=== PATIENT | male | born 1965 | race Caucasian/White ===

== ENCOUNTER 2017-02-09 04:11 | Emergency (ER) | payer OTHER ==
--- NOTE | 2017-02-09 05:23 | ED ORDER SUMMARY ---
..... Patient: LORI HORTON OrderSheet [facility] VisitID: [id number] [place] [address] 51y, M Registration Date/Time: 02/09/2017 ORDER SHEET Weight: 127.0 kg (stated) Allergies: NKDA GENERAL ORDERS: MEDICATION ORDERS: Prednisone PO 60 mg (NOW) (05:07 02/09/2017 Bethany RIVAS) (Ack 5:09 DDavis R.N.) (5:16 DDavis R.N.) Pepcid PO 20 mg (NOW) (05:02/09/2017 Bethany RIVAS) (Ack 5:09 DDavis R.N.) (5:16 DDavis R.N.) Benadryl PO 25 mg (NOW) (05:07 02/09/2017 Bethany RIVAS) (Ack 5:09 DDavis R.N.) (5:16 DDavis R.N.) IV FLUIDS: ORDER SHEET NOTES: [Electronically signed by James Hunt R.N. (05:33 02/09/2017)] [Electronically signed by Mary Travis MD (14:59 02/21/2017)] [Electronically locked/signed by James Hunt R.N. (05:33 02/09/2017)]
--- NOTE | 2017-02-09 05:23 | ED ORDER SUMMARY ---
..... Patient: LORI HORTON OrderSheet [facility] VisitID: [id number] [place] [address] 51y, M Registration Date/Time: 02/09/2017 ORDER SHEET Weight: 127.0 kg (stated) Allergies: NKDA GENERAL ORDERS: MEDICATION ORDERS: Prednisone PO 60 mg (NOW) (05:07 02/09/2017 Bethany RIVAS) (Ack 5:09 DDavis R.N.) (5:16 DDavis R.N.) Pepcid PO 20 mg (NOW) (05:02/09/2017 Bethany RIVAS) (Ack 5:09 DDavis R.N.) (5:16 DDavis R.N.) Benadryl PO 25 mg (NOW) (05:07 02/09/2017 Bethany RIVAS) (Ack 5:09 DDavis R.N.) (5:16 DDavis R.N.) IV FLUIDS: ORDER SHEET NOTES: [Electronically signed by James Hunt R.N. (05:33 02/09/2017)] [Electronically signed by Mary Travis MD (14:59 02/21/2017)] [Electronically locked/signed by James Hunt R.N. (05:33 02/09/2017)]
--- NOTE | 2017-02-09 05:23 | ED NURSING NOTES ---
Clinical Report - Nurses [facility] [address] [place] [address] 02/09/2017 4:11 [id number] TRI[facility] Triage time 04:18. Acuity: LEVEL 4. Chief Complaint: SKIN RASH and . generalized. Alert. EVANGELINA COMA SCORE: [place] Coma Scale: 15- eyes open spontaneously (4); best verbal response- oriented x 4 (5); best motor response- obeys commands (6). --04:23 James Hunt R.N. 04:17 02/09/17. BP: 111/86 (large adult cuff) taken on the left arm, while sitting. HR: 95. RR: 24 (regular and unlabored). O2 saturation: 97% on room air. Temp: 98.2 F (oral). Pain level now: 12/18. --04:23 James Hunt R.N. Weight: 127 kg stated. Height/Length: 74 inches Per Patient. BMI: 36. --04:18 James Hunt R.N. Medications Atorvastatin Calcium Oral (Tablet 80 mg). Gabapentin Oral (Tablet 600 mg), Q 8hrs. Hydrocodone-Acetaminophen Oral. Insulin Lantus 80 units. MetFORMIN HCl Oral (Tablet 1000 mg). Omeprazole Oral. --04:20 James Hunt R.N. Lisinopril Oral. --04:21 James Hunt R.N. Allergies NKDA. --04:20 James Hunt R.N. History Arrived by private vehicle. Historian: patient. Unaccompanied. Reported as generalized in location. Onset. (6 days ago). It is described as itchy and burning. He has recently taken medication (clindamycin). SOCIAL HX: Heavy tobacco smoker (cigarette)- 1 pack per day. No alcohol use or drug use. NUTRITIONAL RISK ASSESSMENT: The nutritional risk assessment revealed no deficiencies. FUNCTIONAL ASSESSMENT: Functional assessment: no impairments noted. LEARNING NEEDS ASSESSMENT: The learning needs assessment revealed no barriers. --04:23 James Hunt R.N. ADDITIONAL SURGERIES: Gangrene surgery. Ulcer. --04:22 James Hunt R.N. Interventions ID band on patient. To treatment room. --04:23 James Hunt R.N. PHYSICAL ASSESSMENT Ambulatory to room. GENERAL / NEURO / PSYCH: Alert. Oriented X 4. Does not appear in pain or distress or anxious. HEENT: Mucous membranes are pink. RESPIRATORY: No respiratory distress. Respirations not labored. Breath sounds within normal limits. No cough. ( airway patent). CVS: No abnormal heart sounds. Capillary refill less than 2 seconds. GI / : Abdomen nontender. SKIN: Skin is warm and dry. Generalized skin rash present. --04:24 James Hunt R.N. NURSING PROGRESS NOTES Pulse oximeter placed on patient. Patient gowned. Head of bed elevated. Two patient identifiers checked. Call light placed in reach. Side rails up x 1. Bed placed in lowest position. Brakes of bed on. Patient ready for evaluation- chart flagged and ED physician notified. Patient waiting for evaluation. --04:25 James Hunt R.N. ( [place] given to patient). --04:50 James Hunt R.N. 05:11 02/09/2017 Prednisone PO Tablets 60 mg given. Allergies verified and confirmed 5 rights. --05:16 James Hunt R.N. 05:13 02/09/2017 Pepcid (Famotidine) PO Tablets 20 mg given. Allergies verified and confirmed 5 rights. --05:16 James Hunt R.N. 05:15 02/09/2017 Benadryl (DiphenhydrAMINE HCl) PO Capsules 25 mg given. Allergies verified, confirmed 5 rights and sedative warning given to the patient. --05:16 James Hunt R.N. DISPOSITION / DISCHARGE Departure time: 05:30. Condition at departure: stable. No learning barriers present. Discharge instructions provided and reviewed with the patient. Reviewed warnings (sedation warning). Reviewed medication(s) side effects, precautions, dosing and course information. Prescription(s) given to the patient. Treatments reviewed. Reviewed referrals for followup. Patient verbalized understanding. Written instructions provided in Filipino. The patient was discharged by the physician. He was discharged home and accompanied by piano and organ refinisher. He left the Emergency Department ambulatory and via private vehicle. Dish Carrier driving. ( I have warned the patient about the sedation effects of the benadryl he received, patient states that he can find someone to give him a ride home). --05:32 James Hunt R.N. 05:30 02/09/17. BP: 125/61. HR: 84. RR: 20. O2 saturation: 94%. Additional comments: no change in pain since last assessment. --05:32 James Hunt R.N. Locked/Released at 02/09/2017 5:33 by James Hunt R.N.
--- NOTE | 2017-02-09 05:23 | ED NURSING NOTES ---
Clinical Report - Nurses [facility] [address] [place] [address] 02/09/2017 4:11 [id number] TRIAGE Triage time 04:18. Acuity: LEVEL 4. Chief Complaint: SKIN RASH and . generalized. Alert. EVANGELINA COMA SCORE: [place] Coma Scale: 15- eyes open spontaneously (4); best verbal response- oriented x 4 (5); best motor response- obeys commands (6). --04:23 James Hunt R.N. 04:17 02/09/17. BP: 111/86 (large adult cuff) taken on the left arm, while sitting. HR: 95. RR: 24 (regular and unlabored). O2 saturation: 97% on room air. Temp: 98.2 F (oral). Pain level now: 12/18. --04:23 James Hunt R.N. Weight: 127 kg stated. Height/Length: 74 inches Per Patient. BMI: 36. --04:18 James Hunt R.N. Medications Atorvastatin Calcium Oral (Tablet 80 mg). Gabapentin Oral (Tablet 600 mg), Q 8hrs. Hydrocodone-Acetaminophen Oral. Insulin Lantus 80 units. MetFORMIN HCl Oral (Tablet 1000 mg). Omeprazole Oral. --04:20 James Hunt R.N. Lisinopril Oral. --04:21 James Hunt R.N. Allergies NKDA. --04:20 James Hunt R.N. History Arrived by private vehicle. Historian: patient. Unaccompanied. Reported as generalized in location. Onset. (6 days ago). It is described as itchy and burning. He has recently taken medication (clindamycin). SOCIAL HX: Heavy tobacco smoker (cigarette)- 1 pack per day. No alcohol use or drug use. NUTRITIONAL RISK ASSESSMENT: The nutritional risk assessment revealed no deficiencies. FUNCTIONAL ASSESSMENT: Functional assessment: no impairments noted. LEARNING NEEDS ASSESSMENT: The learning needs assessment revealed no barriers. --04:23 James Hunt R.N. ADDITIONAL SURGERIES: Gangrene surgery. Ulcer. --04:22 James Hunt R.N. Interventions ID band on patient. To treatment room. --04:23 James Hunt R.N. PHYSICAL ASSESSMENT Ambulatory to room. GENERAL / NEURO / PSYCH: Alert. Oriented X 4. Does not appear in pain or distress or anxious. HEENT: Mucous membranes are pink. RESPIRATORY: No respiratory distress. Respirations not labored. Breath sounds within normal limits. No cough. ( airway patent). CVS: No abnormal heart sounds. Capillary refill less than 2 seconds. GI / : Abdomen nontender. SKIN: Skin is warm and dry. Generalized skin rash present. --04:24 James Hunt R.N. NURSING PROGRESS NOTES Pulse oximeter placed on patient. Patient gowned. Head of bed elevated. Two patient identifiers checked. Call light placed in reach. Side rails up x 1. Bed placed in lowest position. Brakes of bed on. Patient ready for evaluation- chart flagged and ED physician notified. Patient waiting for evaluation. --04:25 James Hunt R.N. ( [place] given to patient). --04:50 James Hunt R.N. 05:11 02/09/2017 Prednisone PO Tablets 60 mg given. Allergies verified and confirmed 5 rights. --05:16 James Hunt R.N. 05:13 02/09/2017 Pepcid (Famotidine) PO Tablets 20 mg given. Allergies verified and confirmed 5 rights. --05:16 James Hunt R.N. 05:15 02/09/2017 Benadryl (DiphenhydrAMINE HCl) PO Capsules 25 mg given. Allergies verified, confirmed 5 rights and sedative warning given to the patient. --05:16 James Hunt R.N. DISPOSITION / DISCHARGE Departure time: 05:30. Condition at departure: stable. No learning barriers present. Discharge instructions provided and reviewed with the patient. Reviewed warnings (sedation warning). Reviewed medication(s) side effects, precautions, dosing and course information. Prescription(s) given to the patient. Treatments reviewed. Reviewed referrals for followup. Patient verbalized understanding. Written instructions provided in [place]inean. The patient was discharged by the physician. He was discharged home and accompanied by web ui developer. He left the Emergency Department ambulatory and via private vehicle. Foot Caster driving. ( I have warned the patient about the sedation effects of the benadryl he received, patient states that he can find someone to give him a ride home). --05:32 James Hunt R.N. 05:30 02/09/17. BP: 125/61. HR: 84. RR: 20. O2 saturation: 94%. Additional comments: no change in pain since last assessment. --05:32 James Hunt R.N. Locked/Released at 02/09/2017 5:33 by James Hunt R.N.
--- NOTE | 2017-02-09 05:23 | ED CLINICAL REPORT ---
Clinical Report - Physicians/Mid Levels [facility] [address] [place] [address] 02/09/2017 4:11 Patient: LORI HORTON Time Seen: 04:37. Arrived- By private vehicle. Historian- patient. HISTORY OF PRESENT ILLNESS Chief Complaint: ALLERGIC REACTION, SKIN RASH, ITCHING and "HIVES". This started several days ago and is still present. The patient has had a skin rash and itching but not had swelling or trouble swallowing. No difficulty breathing, dizziness or fainting episodes. A possible cause has been identified (Pt was on clindamycin, and finally stopped the medication 2 days ago. Pt is concerned that he still has the rash. He is not taking anything for an allergic reaction, currently.). He has recently taken medication. The patient was not assessed by EMS prior to arrival. No treatment prior to arrival. Similar symptoms previously: None. Recent medical care: The patient was seen recently by a health care provider. REVIEW OF SYSTEMS No eye problems, sore throat, cough, sputum production or fever. No chills, joint pain, enlarged lymph nodes, headache or weakness. No numbness, chest pain, palpitations, abdominal pain or vomiting. No black stools, urinary frequency, pain with urination, diarrhea or bloody stools. All systems otherwise negative, except as recorded above. PAST HISTORY Problems: Qkvqsvi-Pjapz-Nuaxe disease. Sepsis. Immunizations. Neuropathy. Diabetes Mellitus. Additional Surgeries: Gangrene surgery. Ulcer. Medications: Lisinopril Oral. Atorvastatin Calcium Oral (Tablet 80 mg). Gabapentin Oral (Tablet 600 mg), Q 8hrs. Hydrocodone-Acetaminophen Oral. Insulin Lantus 80 units. MetFORMIN HCl Oral (Tablet 1000 mg). Omeprazole Oral. Allergies: NKDA. SOCIAL HISTORY Smoker- current status unknown. No alcohol use or drug use. ADDITIONAL NOTES The nursing notes have been reviewed. PHYSICAL EXAM Vital Signs: 02/09/2017 04:17 BP: 111/86. HR: 95. RR: 24. O2 saturation: 97%. Temp: 98.2 F. Pain level now: 410. Have been reviewed. Appearance: Alert. Oriented X3. No acute distress. Head and Neck: Normal external inspection. Eyes: Pupils equal, round and reactive to light. ENT: Nose normal. Voice normal. Neck: Neck supple. CVS: Normal heart rate and rhythm. Heart sounds normal. Respiratory: No respiratory distress. Breath sounds normal. Abdomen: Nontender. No organomegaly. Skin: Skin warm and dry. Extremities: Normal external inspection. Extremities nontender. Skin: Mild generalized urticaria. Mild skin rash. Neuro: Oriented X 3. No motor deficit. No sensory deficit. LABS, X-RAYS, AND EKG Pulse Oximetry: 02/09/2017 04:17 O2 saturation: 97%. (FIO2 - room air). Interpretation: normal. PROGRESS AND PROCEDURES Course of Care: PT was treated symptomatically with Benadryl, prednisone, and Pepcid. He has already removed the most likely offending agent. Pt had no signs of current or impending anaphylaxis. I have explained to the pt that given the systemic nature of the reaction, due to an ingested agent, it may take some days for the allergic reaction to clear. Pt may use the above medications for symptomatic relief, until the sx have resolved. Patient counseled in person regarding the patient's stable condition, diagnosis and need for follow-up. Concerns were addressed. Old medical records reviewed. Disposition: Discharged. Condition: stable. CLINICAL IMPRESSION Generalized allergic reaction with skin rash and hives secondary to drug. No angioedema. INSTRUCTIONS (Please take the prednisone, Benadryl and Pepcid, as directed, until your symptoms resolve or the medicine is used up.). Warnings: GENERAL WARNINGS: Return or contact your physician immediately if your condition worsens or changes unexpectedly, if not improving as expected, or if other problems arise. Your Current Medications: CONTINUE TAKING THE FOLLOWING MEDICATIONS: Atorvastatin Calcium Oral : Tablet 80 mg. Gabapentin Oral : Tablet 600 mg, Q 8hrs. Hydrocodone-Acetaminophen Oral. Insulin Lantus* : 80 units. Lisinopril Oral. MetFORMIN HCl Oral : Tablet 1000 mg. Omeprazole Oral. Prescription Medications: Prednisone 20 mg: take 3 orally every day for 4 days. Dispense sufficient quantity. No refills. Pepcid 20 mg: take 1 orally at bedtime for 5 days. Dispense five (5). No refills. Substitution is permissible. Follow-up: Follow up with your doctor in five days if not better. Understanding of the discharge instructions verbalized by patient. (Electronically signed by Mary Travis MD 02/21/2017 14:59)
--- NOTE | 2017-02-21 15:00 | ED DISCHARGE INSTRUCTIONS ---
Patient: LORI HORTON General Instructions [facility] VisitID: [id number] [place] [address] 51y, M Registration Date/Time: 02/09/2017 Generalized allergic reaction with skin rash and hives secondary to drug. No angioedema. INSTRUCTIONS (Please take the prednisone, Benadryl and Pepcid, as directed, until your symptoms resolve or the medicine is used up.). Warnings: GENERAL WARNINGS: Return or contact your physician immediately if your condition worsens or changes unexpectedly, if not improving as expected, or if other problems arise. Your Current Medications: CONTINUE TAKING THE FOLLOWING MEDICATIONS: Atorvastatin Calcium Oral : Tablet 80 mg. Gabapentin Oral : Tablet 600 mg, Q 8hrs. Hydrocodone-Acetaminophen Oral. Insulin Lantus* : 80 units. Lisinopril Oral. MetFORMIN HCl Oral : Tablet 1000 mg. Omeprazole Oral. Prescription Medications: Prednisone 20 mg: take 3 orally every day for 4 days. Dispense sufficient quantity. No refills. Pepcid 20 mg: take 1 orally at bedtime for 5 days. Dispense five (5). No refills. Substitution is permissible. Follow-up: Follow up with your doctor in five days if not better. Understanding of the discharge instructions verbalized by patient. ADDITIONAL INFORMATION Allergic Reaction,Generalized [Other] You are having an allergic reaction. This may cause an itchy rash, dizziness, fainting, trouble breathing or swallowing, and swelling of the face or other parts of the body. This can be caused by exposure to something in your surroundings that you have become sensitive to. This could be due to medicine or food. This could also be due to something you put on your skin or in your hair or something in the air. Often it is not possible to find out exactly what has caused your reaction. The goal of today's treatment is to relieve symptoms. The rash will usually fade over several days, but can sometimes last up to two weeks. Home Care: 1) If you know what you are allergic to, avoid it because future reactions could be worse than this one. 2) Avoid tight clothing and anything that heats up your skin (hot showers/baths, direct sunlight) since heat will make itching worse. 3) An ice pack will relieve local areas of intense itching and redness. Lanacaine cream or Solarcaine spray (or other product containing "benzocaine", available without a prescription) will reduce the itching. 4) Oral Benadryl (diphenhydramine) is an antihistamine available at drug and grocery stores. Unless a prescription antihistamine was given, Benadryl may be used to reduce itching if large areas of the skin are involved. Use lower doses during the daytime and higher doses at bedtime since the drug may make you sleepy. [NOTE: Do not use Benadryl if you have glaucoma or if you are a man with trouble urinating due to an enlarged prostate.] Claritin (loratidine) is an antihistamine that causes less drowsiness and is a good alternative for daytime use. Follow Up Follow Up with your doctor or this facility in two days if your symptoms do not continue to improve. If you had a severe reaction today, or if you have had several mild-moderate allergic reactions in the past, ask your doctor about allergy testing to find out what you are allergic to. If your reaction included dizziness, fainting or trouble breathing or swallowing, ask your doctor about carrying an Allergy Kit (injectable epinephrine) for home use. Get Prompt Medical Attention if any of the following occur: -- Trouble breathing or swallowing -- New or worse swelling in the face, eyelids, lips, mouth, tongue or throat -- Dizziness, weakness or fainting Prednisone Oral tablet What is this medicine? PREDNISONE (PRED ni sone) is a corticosteroid. It is commonly used to treat inflammation of the skin, joints, lungs, and other organs. Common conditions treated include asthma, allergies, and arthritis. It is also used for other conditions, such as blood disorders and diseases of the adrenal glands. How should I use this medicine? Take this medicine by mouth with a glass of water. Follow the directions on the prescription label. Take this medicine with food. If you are taking this medicine once a day, take it in the morning. Do not take more medicine than you are told to take. Do not suddenly stop taking your medicine because you may develop a severe reaction. Your doctor will tell you how much medicine to take. If your doctor wants you to stop the medicine, the dose may be slowly lowered over time to avoid any side effects. Talk to your warehouse distribution associate regarding the use of this medicine in children. Special care may be needed. What side effects may I notice from receiving this medicine? Side effects that you should report to your doctor or health neonatal intensive care unit nurse as soon as possible: allergic reactions like skin rash, itching or hives, swelling of the face, lips, or tongue changes in emotions or moods changes in vision depressed mood eye pain fever or chills, cough, sore throat, pain or difficulty passing urine increased thirst swelling of ankles, feet Side effects that usually do not require medical attention (report to your doctor or health neonatal intensive care unit nurse if they continue or are bothersome): confusion, excitement, restlessness headache nausea, vomiting skin problems, acne, thin and shiny skin trouble sleeping weight gain What may interact with this medicine? Do not take this medicine with any of the following medications: metyrapone mifepristone This medicine may also interact with the following medications: aminoglutethimide amphotericin B aspirin and aspirin-like medicines barbiturates certain medicines for diabetes, like glipizide or glyburide cholestyramine cholinesterase inhibitors cyclosporine digoxin diuretics ephedrine female hormones, like estrogens and control pills isoniazid ketoconazole NSAIDS, medicines for pain and inflammation, like ibuprofen or naproxen phenytoin rifampin toxoids vaccines warfarin What if I miss a dose? If you miss a dose, take it as soon as you can. If it is almost time for your next dose, talk to your doctor or health neonatal intensive care unit nurse. You may need to miss a dose or take an extra dose. Do not take double or extra doses without advice. Where should I keep my medicine? Keep out of the reach of children. Store at room temperature between 15 and 30 degrees C (59 and 86 degrees F). Protect from light. Keep container tightly closed. Throw away any unused medicine after the expiration date. What should I tell my health care provider before I take this medicine? They need to know if you have any of these conditions: [place]'s syndrome diabetes glaucoma heart disease high blood pressure infection (especially a virus infection such as chickenpox, cold sores, or herpes) kidney disease liver disease mental illness myasthenia gravis osteoporosis seizures stomach or intestine problems thyroid disease an unusual or allergic reaction to lactose, prednisone, other medicines, foods, dyes, or preservatives or trying to get breast-feeding What should I watch for while using this medicine? Visit your doctor or health neonatal intensive care unit nurse for regular checks on your progress. If you are taking this medicine over a prolonged period, carry an identification card with your name and address, the type and dose of your medicine, and your doctor's name and address. This medicine may increase your risk of getting an infection. Tell your doctor or health neonatal intensive care unit nurse if you are around anyone with measles or chickenpox, or if you develop sores or blisters that do not heal properly. If you are going to have surgery, tell your doctor or health neonatal intensive care unit nurse that you have taken this medicine within the last twelve months. Ask your doctor or health neonatal intensive care unit nurse about your diet. You may need to lower the amount of salt you eat. This medicine may affect blood sugar levels. If you have diabetes, check with your doctor or health neonatal intensive care unit nurse before you change your diet or the dose of your diabetic medicine. You have been given the following additional information: Allergic Reaction, Other (General) Prednisone Oral tablet (Electronically signed by Mary Travis MD 02/21/2017 14:59)
--- NOTE | 2017-02-21 15:00 | ED MED RECONCILIATION SUMMARY ---
Patient: LORI HORTON Medication Reconciliation Report [facility] VisitID: [id number] [address] [place] [address] 51y, M Registration Date/Time: 02/09/2017 Weight: 127.0 kg Height/Length: 74 in. BMI: 36.0 ALLERGIES: NKDA The patient's Home Medications are listed below: CONTINUE TAKING THE FOLLOWING MEDICATIONS: Atorvastatin Calcium Oral (80 mg) Gabapentin Oral (600 mg), Q 8hrs Hydrocodone-Acetaminophen Oral Insulin Lantus 80 units Lisinopril Oral MetFORMIN HCl Oral (1000 mg) Omeprazole Oral The source(s) of the original Home Medication information: Not obtained. The following Medications were given to the patient in the Emergency Department: Prednisone [PO] PO 60 mg, administered: 02/09/2017 5:11:00 AM Pepcid [PO] PO 20 mg, administered: 02/09/2017 5:13:00 AM Benadryl [PO] PO 25 mg, administered: 02/09/2017 5:15:00 AM The following Medications were prescribed to the patient: Prednisone 20 mg: take 3 orally every day for 4 days. Dispense sufficient quantity. No refills. -- Mary Travis MD Pepcid 20 mg: take 1 orally at bedtime for 5 days. Dispense five (5). No refills. Substitution is permissible. -- Mary Travis MD
--- NOTE | 2017-02-21 15:00 | ED MAR SUMMARY ---
..... Medication Administration Record [facility] [address] [place] [address] Patient: LORI HORTON Visit ID: [id number] 51y, M Weight: 127.0 kg Height/Length: 74 in BMI: 36 ALLERGIES: NKDA Given 05:11 02/09/2017 James Hunt R.N. Medication Administered: PREDNISONE [PO], Dose: 60 mg Tablets PO. Medication Ordered: Prednisone PO 60 mg (NOW). Given 05:13 02/09/2017 James Hunt R.N. Medication Administered: PEPCID [PO] (FAMOTIDINE), Dose: 20 mg Tablets PO. Medication Ordered: Pepcid PO 20 mg (NOW). Given 05:15 02/09/2017 James Hunt R.N. Medication Administered: BENADRYL [PO] (DIPHENHYDRAMINE HCL), Dose: 25 mg Capsules PO. Medication Ordered: Benadryl PO 25 mg (NOW).
--- NOTE | 2017-02-21 15:00 | ED MED RECONCILIATION SUMMARY ---
Patient: LORI HORTON Medication Reconciliation Report [facility] VisitID: [id number] [address] [place] [address] 51y, M Registration Date/Time: 02/09/2017 Weight: 127.0 kg Height/Length: 74 in. BMI: 36.0 ALLERGIES: NKDA The patient's Home Medications are listed below: CONTINUE TAKING THE FOLLOWING MEDICATIONS: Atorvastatin Calcium Oral (80 mg) Gabapentin Oral (600 mg), Q 8hrs Hydrocodone-Acetaminophen Oral Insulin Lantus 80 units Lisinopril Oral MetFORMIN HCl Oral (1000 mg) Omeprazole Oral The source(s) of the original Home Medication information: Not obtained. The following Medications were given to the patient in the Emergency Department: Prednisone [PO] PO 60 mg, administered: 02/09/2017 5:11:00 AM Pepcid [PO] PO 20 mg, administered: 02/09/2017 5:13:00 AM Benadryl [PO] PO 25 mg, administered: 02/09/2017 5:15:00 AM The following Medications were prescribed to the patient: Prednisone 20 mg: take 3 orally every day for 4 days. Dispense sufficient quantity. No refills. -- Mary Travis MD Pepcid 20 mg: take 1 orally at bedtime for 5 days. Dispense five (5). No refills. Substitution is permissible. -- Mary Travis MD
--- NOTE | 2017-02-21 15:00 | ED MAR SUMMARY ---
..... Medication Administration Record [facility] [address] [place] [address] Patient: LORI HORTON Visit ID: [id number] 51y, M Weight: 127.0 kg Height/Length: 74 in BMI: 36 ALLERGIES: NKDA Given 05:11 02/09/2017 James Hunt R.N. Medication Administered: PREDNISONE [PO], Dose: 60 mg Tablets PO. Medication Ordered: Prednisone PO 60 mg (NOW). Given 05:13 02/09/2017 James Hunt R.N. Medication Administered: PEPCID [PO] (FAMOTIDINE), Dose: 20 mg Tablets PO. Medication Ordered: Pepcid PO 20 mg (NOW). Given 05:15 02/09/2017 James Hunt R.N. Medication Administered: BENADRYL [PO] (DIPHENHYDRAMINE HCL), Dose: 25 mg Capsules PO. Medication Ordered: Benadryl PO 25 mg (NOW).
--- NOTE | 2017-02-21 15:00 | ED DISCHARGE INSTRUCTIONS ---
Patient: LORI HORTON General Instructions [facility] VisitID: [id number] [place] [address] 51y, M Registration Date/Time: 02/09/2017 Generalized allergic reaction with skin rash and hives secondary to drug. No angioedema. INSTRUCTIONS (Please take the prednisone, Benadryl and Pepcid, as directed, until your symptoms resolve or the medicine is used up.). Warnings: GENERAL WARNINGS: Return or contact your physician immediately if your condition worsens or changes unexpectedly, if not improving as expected, or if other problems arise. Your Current Medications: CONTINUE TAKING THE FOLLOWING MEDICATIONS: Atorvastatin Calcium Oral : Tablet 80 mg. Gabapentin Oral : Tablet 600 mg, Q 8hrs. Hydrocodone-Acetaminophen Oral. Insulin Lantus* : 80 units. Lisinopril Oral. MetFORMIN HCl Oral : Tablet 1000 mg. Omeprazole Oral. Prescription Medications: Prednisone 20 mg: take 3 orally every day for 4 days. Dispense sufficient quantity. No refills. Pepcid 20 mg: take 1 orally at bedtime for 5 days. Dispense five (5). No refills. Substitution is permissible. Follow-up: Follow up with your doctor in five days if not better. Understanding of the discharge instructions verbalized by patient. ADDITIONAL INFORMATION Allergic Reaction,Generalized [Other] You are having an allergic reaction. This may cause an itchy rash, dizziness, fainting, trouble breathing or swallowing, and swelling of the face or other parts of the body. This can be caused by exposure to something in your surroundings that you have become sensitive to. This could be due to medicine or food. This could also be due to something you put on your skin or in your hair or something in the air. Often it is not possible to find out exactly what has caused your reaction. The goal of today's treatment is to relieve symptoms. The rash will usually fade over several days, but can sometimes last up to two weeks. Home Care: 1) If you know what you are allergic to, avoid it because future reactions could be worse than this one. 2) Avoid tight clothing and anything that heats up your skin (hot showers/baths, direct sunlight) since heat will make itching worse. 3) An ice pack will relieve local areas of intense itching and redness. Lanacaine cream or Solarcaine spray (or other product containing "benzocaine", available without a prescription) will reduce the itching. 4) Oral Benadryl (diphenhydramine) is an antihistamine available at drug and grocery stores. Unless a prescription antihistamine was given, Benadryl may be used to reduce itching if large areas of the skin are involved. Use lower doses during the daytime and higher doses at bedtime since the drug may make you sleepy. [NOTE: Do not use Benadryl if you have glaucoma or if you are a man with trouble urinating due to an enlarged prostate.] Claritin (loratidine) is an antihistamine that causes less drowsiness and is a good alternative for daytime use. Follow Up Follow Up with your doctor or this facility in two days if your symptoms do not continue to improve. If you had a severe reaction today, or if you have had several mild-moderate allergic reactions in the past, ask your doctor about allergy testing to find out what you are allergic to. If your reaction included dizziness, fainting or trouble breathing or swallowing, ask your doctor about carrying an Allergy Kit (injectable epinephrine) for home use. Get Prompt Medical Attention if any of the following occur: -- Trouble breathing or swallowing -- New or worse swelling in the face, eyelids, lips, mouth, tongue or throat -- Dizziness, weakness or fainting Prednisone Oral tablet What is this medicine? PREDNISONE (PRED ni sone) is a corticosteroid. It is commonly used to treat inflammation of the skin, joints, lungs, and other organs. Common conditions treated include asthma, allergies, and arthritis. It is also used for other conditions, such as blood disorders and diseases of the adrenal glands. How should I use this medicine? Take this medicine by mouth with a glass of water. Follow the directions on the prescription label. Take this medicine with food. If you are taking this medicine once a day, take it in the morning. Do not take more medicine than you are told to take. Do not suddenly stop taking your medicine because you may develop a severe reaction. Your doctor will tell you how much medicine to take. If your doctor wants you to stop the medicine, the dose may be slowly lowered over time to avoid any side effects. Talk to your slubber hand regarding the use of this medicine in children. Special care may be needed. What side effects may I notice from receiving this medicine? Side effects that you should report to your doctor or health care aid as soon as possible: allergic reactions like skin rash, itching or hives, swelling of the face, lips, or tongue changes in emotions or moods changes in vision depressed mood eye pain fever or chills, cough, sore throat, pain or difficulty passing urine increased thirst swelling of ankles, feet Side effects that usually do not require medical attention (report to your doctor or health care aid if they continue or are bothersome): confusion, excitement, restlessness headache nausea, vomiting skin problems, acne, thin and shiny skin trouble sleeping weight gain What may interact with this medicine? Do not take this medicine with any of the following medications: metyrapone mifepristone This medicine may also interact with the following medications: aminoglutethimide amphotericin B aspirin and aspirin-like medicines barbiturates certain medicines for diabetes, like glipizide or glyburide cholestyramine cholinesterase inhibitors cyclosporine digoxin diuretics ephedrine female hormones, like estrogens and control pills isoniazid ketoconazole NSAIDS, medicines for pain and inflammation, like ibuprofen or naproxen phenytoin rifampin toxoids vaccines warfarin What if I miss a dose? If you miss a dose, take it as soon as you can. If it is almost time for your next dose, talk to your doctor or health care aid. You may need to miss a dose or take an extra dose. Do not take double or extra doses without advice. Where should I keep my medicine? Keep out of the reach of children. Store at room temperature between 15 and 30 degrees C (59 and 86 degrees F). Protect from light. Keep container tightly closed. Throw away any unused medicine after the expiration date. What should I tell my health care provider before I take this medicine? They need to know if you have any of these conditions: [place]'s syndrome diabetes glaucoma heart disease high blood pressure infection (especially a virus infection such as chickenpox, cold sores, or herpes) kidney disease liver disease mental illness myasthenia gravis osteoporosis seizures stomach or intestine problems thyroid disease an unusual or allergic reaction to lactose, prednisone, other medicines, foods, dyes, or preservatives or trying to get breast-feeding What should I watch for while using this medicine? Visit your doctor or health care aid for regular checks on your progress. If you are taking this medicine over a prolonged period, carry an identification card with your name and address, the type and dose of your medicine, and your doctor's name and address. This medicine may increase your risk of getting an infection. Tell your doctor or health care aid if you are around anyone with measles or chickenpox, or if you develop sores or blisters that do not heal properly. If you are going to have surgery, tell your doctor or health care aid that you have taken this medicine within the last twelve months. Ask your doctor or health care aid about your diet. You may need to lower the amount of salt you eat. This medicine may affect blood sugar levels. If you have diabetes, check with your doctor or health care aid before you change your diet or the dose of your diabetic medicine. You have been given the following additional information: Allergic Reaction, Other (General) Prednisone Oral tablet (Electronically signed by Mary Travis MD 02/21/2017 14:59)
== END 2017-02-09 05:30 | disposition home or self-care (01) ==
LOC: ED SRH 04:11
DX: L50.0 Allergic urticaria (principal); L27.0 Generalized skin eruption due to drugs and medicaments taken internally; T36.8X5A Adverse effect of other systemic antibiotics, initial encounter; E11.9 Type 2 diabetes mellitus without complications; Z79.899 Other long term (current) drug therapy; Z79.4 Long term (current) use of insulin; Z79.84 Long term (current) use of oral hypoglycemic drugs; Z79.891 Long term (current) use of opiate analgesic